=== PATIENT | male | born 1960 | race Caucasian/White ===

== ENCOUNTER 2019-10-06 17:43 | Emergency (ER) | payer BC ==
[~2019-10-06] VITALS: Ht 165.1 cm; Wt 83.4 kg
[~2019-10-06 17:43] MED LIST: AMLO-150 PO; ASPI-496 PO; LISI5TAB7 PO; METO-93 PO
--- NOTE | 2019-10-06 17:55 | NUR ---
FIRST CONTACT WITH PT. PT WAS WRANGLING SOME COWS ON SATURDAY AND FELL. PT REPORTS PAIN IN RIGHT FLANK. DENIES MIDLINE TENDERNESS OR LOC. PT'S AOX4. RESPS EVEN AND UNLABORED.
--- NOTE | 2019-10-06 18:52 | NUR ---
REPORT GIVEN TO JOEL NOVOA.
[2019-10-06 19:17] VITALS: BP 130/86
--- NOTE | 2019-10-06 19:19 | NUR ---
PT RESTING ON RIGO, WITH FAMILY AT BS. MONTIORING IN PLACE, CALL LIGHT WITHIN REACH. ALL SAFETY MEASURES IN PLACE. PT UPDATED ON POC.
[2019-10-06] MEDS ORDERED: KETOROLAC 30 MG/1 ML IM ONE (19:30)
[2019-10-06] MEDS ORDERED: KETOROLAC 30 MG/1 ML ONE (19:40)
== END 2019-10-06 20:11 | disposition home or self-care (01) ==
LOC: ED 19:45
DX: S22.31XA Fracture of one rib, right side, initial encounter for closed fracture (principal); I10 Essential (primary) hypertension; E11.9 Type 2 diabetes mellitus without complications; W01.0XXA Fall on same level from slipping, tripping and stumbling without subsequent striking against object, initial encounter; Y93.89 Activity, other specified; Y92.89 Other specified places as the place of occurrence of the external cause; Y99.8 Other external cause status
CPT/HCPCS: 71101; 96372; 99283; J1885